=== PATIENT | female | born 1995 | race Caucasian/White ===

== ENCOUNTER → 2016-11-05 | Outpatient (CLI) | payer OTHER ==
--- NOTE | 2016-11-11 14:14 | PULMONARY FUNCTION TEST ---
INTERPRETATION: The spirometry reveals normal airflow with no significant change in the FEV1 with the use of albuterol.
== END | disposition home or self-care (01) ==
LOC: C.RC 09:21
PROVIDERS: ATTEND Family Medicine
DX: R05 Cough (principal)